=== PATIENT | female | born 2005 | race Caucasian/White ===

== ENCOUNTER 2023-07-28 21:46 | Emergency (ER) | payer OTHER ==
[~2023-07-28] VITALS: Ht 162.6 cm; Wt 68.0 kg
[2023-07-28] MEDS ORDERED: NAPROXEN 250 MG TABLET PO ONE (23:00)
[2023-07-28 23:13] LABS: APPEARANCE,URINE CLEAR (CLEAR); BILIRUBIN,URINE NEGATIVE (NEGATIVE); BLOOD, URINE NEGATIVE Ery/uL (NEGATIVE); COLOR,URINE YELLOW (YELLOW); KETONES,URINE NEGATIVE (NEGATIVE); LEUKOCYTE ESTERASE ,URINE NEGATIVE (NEGATIVE); NITRITE, URINE NEGATIVE (NEGATIVE); PH,URINE 7.5 (5.0-8.0); PROTEIN,URINE NEGATIVE (NEGATIVE); UGLUCOSE NEGATIVE (NEGATIVE); UROBILINOGEN,URINE 0.2 EU/dL (0.2)
[2023-07-28 23:21] LABS: PREGNANCY TEST URINE QUAL NEGATIVE (NEGATIVE)
[2023-07-28] MEDS ORDERED: NAPROXEN 250 MG TABLET ONE (23:29)
[2023-07-29 00:13] VITALS: BP 122/73; TEMP 98.2; O2SAT 100
== END 2023-07-29 00:13 | disposition home or self-care (01) ==
LOC: ER 21:50
DX: N94.10 Unspecified dyspareunia (principal); R10.2 Pelvic and perineal pain; Z88.0 Allergy status to penicillin
CPT/HCPCS: 84703-TC